=== PATIENT | male | born 1965 | race Two or more races ===

== ENCOUNTER 2016-12-07 15:31 | Emergency (ER) | payer BC ==
[2016-12-07 15:47] VITALS: BP 101/64; PULSE 72; RESP 20; TEMP 98.4; O2SAT 100
--- NOTE | 2016-12-07 16:05 | C.PDOC ---
History Of Present Illness 50 year old male presents for follow up of left thigh cyst. Patient was in the ED on 11/12 for the same complaint. The wound was aspirated with no drainage. He was given course of oral antibiotics and told to return to the ED in 2 days for evaluation and possible I&D. Patient completed the antibiotics; however, he never followed up. Today patient states that he came in because he was concerned that it may be getting worse. Per patient, the abscess has significantly decreased in size and is no longer painful. He has not been taking any medications daily. Denies fever, pain, drainage, bleeding, numbness , and tingling. (Carolny Ritter) History Per: Patient History/Exam Limitations: no limitations Onset/Duration Of Symptoms: Days Current Symptoms Are (Timing): Better Location Of Injury: Left: Thigh (inner thigh, 3 inches distal from groin fold ) Severity: None Pain Scale Rating Of: 0 Recent travel outside of the [place]: No Additional History Per: Patient Time Seen by Provider: 12/07/16 16:00 Chief Complaint (Nursing): Wound Check Past Medical History Reviewed: Historical Data, Nursing Documentation, Vital Signs - Medical History PMH: No Chronic Diseases Denies: Sexually Transmitted Disease Surgical History: No Surg Hx Family History: States: Unknown Family Hx - Social History Hx Tobacco Use: Yes (cigarettes 1 ppd) Hx Alcohol Use: No Hx Substance Use: No - Immunization History Hx Tetanus Toxoid Vaccination: No Hx Influenza Vaccination: No Hx Pneumococcal Vaccination: No Vital Signs: Last Vital Signs Temp 98.4 F 12/07/16 15:47 Pulse 72 12/07/16 15:47 Resp 20 12/07/16 15:47 BP 101/64 12/07/16 15:47 Pulse Ox 100 12/07/16 16:27 Review Of Systems Except As Marked, All Systems Reviewed And Found Negative. Skin: Positive for: Lesions Physical Exam - Physical Exam Appears: Well, Non-toxic, No Acute Distress Skin: Normal Color, Warm, Dry, Other (left thigh abscess, no fluctuance, 1cm x 1cm area of granulation tissue with surrounding induration, no drainage or bleeding) Head: Atraumatic Eye(s): bilateral: Normal Inspection, PERRL, EOMI Lymphatic: Normal Exam, No Adenopathy Cardiovascular: Rhythm Regular Respiratory: Normal Breath Sounds Gastrointestinal/Abdominal: Normal Exam Extremity: Normal ROM, No Pedal Edema Extremity: Bilateral: Normal ROM Neurological/Psych: Oriented x3, Normal Speech, Normal Cognition ED Course And Treatment O2 Sat by Pulse Oximetry: 100 Progress Note: 1615: applied bacitracin ointment and covered in clean guaze dressing Medical Decision Making Medical Decision Making: Seen and examined with resident. 50 y/o M p/w thigh wound that he was here for 1 month ago and put on antibiotics after failed aspiration. States it has only improved and not had any worsening course but he noticed a flap of tissue hanging from the middle of the wound so he wanted to get it checked out. On exam , area is mildly indurated with open wound on inner L thigh. No erythema or pus. (Chris,Reji Salazar) Disposition Discussed With .: Reji Salazar [facility] Doctor Will See Patient In The: Office Counseled Patient/Family Regarding: Need For Followup, Rx Given - Disposition Disposition Time: 16:12 - POA Present On Arrival: None - Disposition Referrals: Sukumar Cortez MD [Staff Provider] - Disposition: HOME/ ROUTINE Condition: GOOD Additional Instructions: Patient should follow up with his PMD within 7 days for re-evaluation of his wound. Patient was instructed to apply Bacitracin ointment to the affected area daily. If he experiences worsening of his symptoms such as pain, fever, and pus drainage or if he has any other concerns he should return to the ED. Instructions were explained to the patient who understands. Prescriptions: Bacitracin Ointment [Bacitracin] 1 gm TOP DAILY #1 tube Instructions: Chronic Wound Care (GEN) Forms: General Discharge Instructions - Clinical Impression Clinical Impression: Infection of skin
[2016-12-07] MEDS ORDERED: Bacitracin Ointment 30 GM TUBE TOP STA (16:07)
[2016-12-07] MEDS ORDERED: Bacitracin 500 Units/gm Oint Foilpak UD ONE (16:09)
== END 2016-12-07 16:28 | disposition home or self-care (01) ==
LOC: C.ER 15:31
DX: S71.102D Unspecified open wound, left thigh, subsequent encounter (principal); L08.9 Local infection of the skin and subcutaneous tissue, unspecified; X58.XXXD Exposure to other specified factors, subsequent encounter